=== PATIENT | male | born 1960 | race Two or more races ===

== ENCOUNTER 2020-04-05 11:46 | Inpatient (IN) | payer OTHER ==
[~2020-04-05] VITALS: Ht 188 cm; Wt 95.3 kg
[2020-04-05] MEDS ORDERED: METFORMIN HCL1000 MG (12:04)
[2020-04-05] MEDS ORDERED: CARVEDILOL ER40 MG (12:05)
[2020-04-05] MEDS ORDERED: [UNRECOGNIZED DRUG - OTHER] (12:05)
--- NOTE | 2020-04-05 12:06 | NUR ---
SE RECIBE PTE CON DEDO DEL RICKIE EDEMATOSO, ENROJECIDO , SUPURANDO DAMON , REFIERE DOLOR JOSÉ. RELACIONADO A ROTURAS DE UNAS AMPOLLAS DESDE HACE 2 FINE.
--- NOTE | 2020-04-05 13:44 | NUR ---
PTE MASCULINO ALERTA Y ORIENTADO EN LAS LYNSEY ESFERAS ES EVALUADO POR . SE ORIENTA PTE SOBRE ORDENES DE TRATAMIENTO REFIERE COMPRENDER. SE COLECTAN MUESTRAS DE LABORATORIO Y SE CANALIZA VENA, BAJO MEDIDAS ASEPTICAS. SE NOTIFICA A PERSONAL DE RADIOLOGIA PARA XRAY. PENDIENTE CONSULTA CON , YA NOTIFICADA.
--- NOTE | 2020-04-05 15:59 | NUR ---
PTE CONSULTADO CON Cammie SORENSON.
[2020-04-14] MEDS ORDERED: INTESTINEX680 M1 PO (12:06)
[2020-04-14] MEDS ORDERED: KEFLEX500 MG PO (12:06)
== END 2020-04-14 12:12 | disposition home or self-care (01) | DRG 256 ==
LOC: ER 11:46 → MEDJ 18:00
PROVIDERS: ADMIT Internal Medicine; ATTEND Internal Medicine
PROC: 8E0ZXY6 Isolation (ICD-10-PCS; 2020-04-05)
PROC: 30233R1 Transfusion of Nonautologous Platelets into Peripheral Vein, Percutaneous Approach (ICD-10-PCS; 2020-04-06)
PROC: 0X6Q0Z3 Detachment at Right Middle Finger, Low, Open Approach (ICD-10-PCS; principal; 2020-04-07)
PROC: BP3CZZZ Magnetic Resonance Imaging (MRI) of Right Hand/Finger Joint (ICD-10-PCS; 2020-04-07)
DX: E11.52 Type 2 diabetes mellitus with diabetic peripheral angiopathy with gangrene (principal); I96 Gangrene, not elsewhere classified; M86.141 Other acute osteomyelitis, right hand; E11.69 Type 2 diabetes mellitus with other specified complication; L03.011 Cellulitis of right finger; I25.10 Atherosclerotic heart disease of native coronary artery without angina pectoris; E78.00 Pure hypercholesterolemia, unspecified; Z95.5 Presence of coronary angioplasty implant and graft; E11.65 Type 2 diabetes mellitus with hyperglycemia; Z79.01 Long term (current) use of anticoagulants; I10 Essential (primary) hypertension; Z20.828 Contact with and (suspected) exposure to other viral communicable diseases; B95.61 Methicillin susceptible Staphylococcus aureus infection as the cause of diseases classified elsewhere; Z79.4 Long term (current) use of insulin; E11.622 Type 2 diabetes mellitus with other skin ulcer
CPT/HCPCS: 73223

== ENCOUNTER 2021-06-24 08:00 | Outpatient (CLI) | payer OTHER ==
[~2021-06-24 08:00] MED LIST: CARVEDILOL ER40 MG; INTESTINEX680 M1 PO; KEFLEX500 MG PO; METFORMIN HCL1000 MG; [UNRECOGNIZED DRUG - OTHER]
== END 2021-06-24 08:30 | disposition home or self-care (01) ==
LOC: PPH VACUNA 08:00
PROVIDERS: ATTEND Emergency Medicine Pediatric Emergency Medicine
DX: Z23 Encounter for immunization (principal)

== ENCOUNTER → 2021-12-02 | Emergency (ER) | payer OTHER ==
[~2021-12-02] VITALS: Ht 185.4 cm; Wt 93.0 kg
[~2021-12-02] MED LIST changes: +ATORVASTATIN CA40 MG; +PLAVIX75 MG
== END | disposition left against medical advice (07) ==
LOC: ER 05:37
DX: R10.9 Unspecified abdominal pain (principal)